=== PATIENT | female | born 1955 | race Caucasian/White ===

== ENCOUNTER → 2020-12-07 | Outpatient (CLI) | payer OTHER ==
[~2020-12-07] MED LIST: CATAPRES 0.1MG0.1 MG PO
== END ==
LOC: KOH-I 11:45
DX: R10.9 Unspecified abdominal pain (principal); M89.8X8 Other specified disorders of bone, other site
CPT/HCPCS: 74018

== ENCOUNTER → 2020-12-29 | Outpatient (CLI) | payer OTHER | LOC: CT 07:44 | DX: M95.9 Acquired deformity of musculoskeletal system, unspecified (principal) | CPT/HCPCS: 72192 ==